=== PATIENT | male | born 1945 | race Caucasian/White ===

== ENCOUNTER 2016-10-08 07:13 | Day surgery (SDC) | payer OTHER ==
[2016-10-05 13:18] VITALS: BMI 33.2
[2016-10-08 07:41] VITALS: TEMP 98.2
[2016-10-08] MEDS ORDERED: PROPOFOL 20 ML ONE ×2 (07:44)
[2016-10-08] MEDS ORDERED: LIDOCAINE HCL/PF 2% SDV 5ML VIAL ONE (07:45)
[2016-10-08 09:38] VITALS: BP 108/61; PULSE 60
--- NOTE | 2016-10-09 11:16 | PATH ---
Surgical Pathology Report Patient Name: OFELIA ALEX [facility]. Rec. #: [id number] /Age/Gender: 1945 (Age: 71) / M Account: [id number] Location: Taken: 10/08/2016 Received: 10/08/2016 Reported: 10/09/2016 Physicians: Roman Miller M.D. Specimen(s) Received A: BX RIGHT COLON B: BX TRANSVERSE COLON C: BX SIGMOID D: BX RECTUM Clinical History History of polyps Polyps Final Diagnosis A. COLON, RIGHT, BIOPSY: HYPERPLASTIC POLYP WITH ULCERATION AND ASSOCIATED ACUTE INFLAMMATION. B. COLON, TRANSVERSE, BIOPSY: TUBULAR ADENOMA. C. COLON, SIGMOID, BIOPSY: HYPERPLASTIC POLYP. D. RECTUM, BIOPSY: TUBULAR ADENOMA. Electronically Signed Fred Vasquez M.D. Gross Description A. Received in formalin, labeled "right colon" are 2 orona, irregular portions of soft tissue measuring 0.4 and 0.5 cm. in greatest dimension. The specimens are submitted in toto in one cassette. B. Received in formalin, labeled "transverse" are 2 orona, irregular portions of soft tissue measuring 0.3 and 0.5 cm. in greatest dimension. The specimens are submitted in toto in one cassette. C. Received in formalin, labeled "sigmoid" is a orona, irregular portion of soft tissue measuring 0.2 cm. in greatest dimension. The specimen is submitted in toto in one cassette. D. Received in formalin, labeled "rectum" is a orona, polypoid portion of soft tissue measuring 0.7 cm. in greatest dimension. The specimen is submitted in toto in one cassette. /10/08/2016 saudi10/08/2016
== END 2016-10-08 09:45 | disposition home or self-care (01) ==
LOC: FASU-ENDO 07:13
PROVIDERS: ATTEND Internal Medicine Gastroenterology
PROC: 0DBK8ZX Excision of Ascending Colon, Via Natural or Artificial Opening Endoscopic, Diagnostic (ICD-10-PCS; 2016-10-08)
PROC: 0DBN8ZX Excision of Sigmoid Colon, Via Natural or Artificial Opening Endoscopic, Diagnostic (ICD-10-PCS; 2016-10-08)
PROC: 0DBL8ZX Excision of Transverse Colon, Via Natural or Artificial Opening Endoscopic, Diagnostic (ICD-10-PCS; principal; 2016-10-08 08:28)
PROC: 0DBP8ZX Excision of Rectum, Via Natural or Artificial Opening Endoscopic, Diagnostic (ICD-10-PCS; 2016-10-08 08:28)
DX: Z86.010 Personal history of colon polyps (principal); D12.3 Benign neoplasm of transverse colon; D12.5 Benign neoplasm of sigmoid colon; D12.8 Benign neoplasm of rectum; K63.5 Polyp of colon
CPT/HCPCS: 88305-TC

== ENCOUNTER 2017-04-08 10:22 | Day surgery (SDC) | payer OTHER ==
[2017-04-03 13:24] VITALS: BMI 33.2
[2017-04-08 10:38] VITALS: TEMP 97.6
[2017-04-08 12:55] VITALS: BP 112/60; PULSE 66
--- NOTE | 2017-04-10 12:59 | PATH ---
Surgical Pathology Report Patient Name: OFELIA ALEX [facility]. Rec. #: [id number] /Age/Gender: 1945 (Age: 71) / M Account: [id number] Location: [facility]OS[facility] Taken: 04/08/2017 Received: 04/08/2017 Reported: 04/10/2017 Physicians: Roman Miller M.D. Specimen(s) Received BX ANTRUM Clinical History GERD Gastritis Final Diagnosis STOMACH, ANTRUM, BIOPSY: MILD REACTIVE GASTROPATHY. IMMUNOSTAIN FOR H. PYLORI IS NEGATIVE. Electronically Signed Fred Vasquez M.D. Gross Description Received in formalin, labeled "antrum" is a orona, irregular portion of soft tissue measuring 0.3 cm. in greatest dimension. The specimen is submitted in toto in one cassette. 04/09/201704/09/2017
== END 2017-04-08 13:00 | disposition home or self-care (01) ==
LOC: FASU-ENDO 10:22
PROVIDERS: ATTEND Internal Medicine Gastroenterology
PROC: 0DB68ZX Excision of Stomach, Via Natural or Artificial Opening Endoscopic, Diagnostic (ICD-10-PCS; principal; 2017-04-08 12:08)
DX: Z13.810 Encounter for screening for upper gastrointestinal disorder (principal); K76.6 Portal hypertension; K31.89 Other diseases of stomach and duodenum; I85.00 Esophageal varices without bleeding
CPT/HCPCS: 88305-TC; 88342-TC

== ENCOUNTER 2021-12-04 17:44 | Emergency (ER) | payer OTHER ==
[2021-12-04] MEDS ORDERED: FAMOTIDINE 20 MG/50 ML IVPB 20 MG/50 ML MG IVPB ONE ×2 (18:24→19:05)
[2021-12-04 18:56] LABS: INR 1.4 (0.83-1.09); PROTHROMBIN TIME (PATIENT) 16.2 SEC (9.7-13.0)
[2021-12-04 18:59] LABS: ACTIVATED PTT 27.5 SECONDS (25.2-36.5)
[2021-12-04 19:02] VITALS: TEMP 98.3; BMI 32.5
[2021-12-04 19:19] LABS: ALBUMIN 4.3 g/dl (3.4-5.0); BILIRUBIN,TOTAL 1.1 mg/dl (0.2-1); CALCIUM 9.6 mg/dl (8.5-10); CREATININE 1.5 mg/dl (0.55-1.3); TOT PROT 7.9 g/dl (6.4-8.2)
[2021-12-04 19:24] VITALS: BP 126/59; PULSE 62
[2021-12-04 19:30] LABS: HEMATOCRIT 46.7 % (35.4-49); HEMOGLOBIN 16.3 G/dL (11.7-16.9); MCH 30.9 pg (25.7-33.7); MCHC 34.9 g/dl (32.0-35.9); MEAN CELL VOLUME 88.6 fl (80-96); MEAN PLT VOLUME 9.7 fl (7.5-11.1); PLATELET COUNT 105.5 10^3/uL (134-434); RBC 5.27 10^6/uL (4.00-5.60); RDW 15.5 % (11.9-15.9); WHITE BLOOD COUNT 7.2 10^3/uL (4.0-10.8)
[2021-12-04 19:38] LABS: ANISOCYTOSIS 1+; PLATELET ESTIMATE SLT DECREASE
== END 2021-12-04 21:57 | disposition home or self-care (01) ==
LOC: FER 17:44
PROC: 3E033GC Introduction of Other Therapeutic Substance into Peripheral Vein, Percutaneous Approach (ICD-10-PCS; principal; 2021-12-04)
DX: R10.10 Upper abdominal pain, unspecified (principal)
CPT/HCPCS: 36415; 71045-TC-FY; 74176-TC; 80053; 81003; 83605; 83690; 84484; 85025; 85610; 85730; 86850; 86900; 86901; 87086; 93005; 99285-25; C9803-CS; U0003; U0005

== ENCOUNTER 2023-01-13 09:49 | Emergency (ER) | payer OTHER ==
[2023-01-13 10:11] VITALS: BMI 30.2
[2023-01-13 10:58] LABS: HEMATOCRIT 43.2 % (35.4-49); HEMOGLOBIN 14.6 G/dL (11.7-16.9); MCH 29.8 pg (25.7-33.7); MCHC 33.7 g/dl (32.0-35.9); MEAN CELL VOLUME 88.5 fl (80-96); MEAN PLT VOLUME 8.8 fl (7.5-11.1); PLATELET COUNT 116.4 10^3/uL (134-434); RBC 4.88 10^6/uL (4.00-5.60); RDW 14.4 % (11.9-15.9); WHITE BLOOD COUNT 5.1 10^3/uL (4.0-10.8)
[2023-01-13 11:12] LABS: AMORP URATES 3+ /hpf (NONE SEEN)
[2023-01-13 11:17] LABS: ALBUMIN 4.1 g/dl (3.4-5.0); BILIRUBIN,TOTAL 1.3 mg/dl (0.2-1); BLOOD UREA NITROGEN 20.6 mg/dl (7-18); CALCIUM 9.1 mg/dl (8.5-10.1); CREATININE 1.3 mg/dl (0.6-1.3); POTASSIUM 4.8 mmol/L (3.5-5.1); SGOT/AST 21.5 U/L (15-37); SGPT/ALT 17.4 U/L (7-52); TOT PROT 7.4 g/dl (6.4-8.2)
[2023-01-13 11:27] LABS: INR 1.49 (0.83-1.09); PROTHROMBIN TIME (PATIENT) 17.2 SEC (9.7-13.0)
[2023-01-13 11:30] LABS: ACTIVATED PTT 31.9 SECONDS (25.2-36.5)
[2023-01-13 12:32] VITALS: BP 143/75; PULSE 59; RESP 16; TEMP 98
== END 2023-01-13 12:32 | disposition home or self-care (01) ==
LOC: FER 09:49
DX: R10.84 Generalized abdominal pain (principal); K80.20 Calculus of gallbladder without cholecystitis without obstruction; R18.8 Other ascites
CPT/HCPCS: 36415; 74019-TC-FY; 76700-TC; 80053; 81003; 81015; 82150; 83690; 85027; 85610; 85730; 99285-25